=== PATIENT | female | born 1945 | race Caucasian/White ===

== ENCOUNTER 2017-04-26 13:40 | Emergency (ER) | payer OTHER, BC ==
[2017-04-26 14:13] VITALS: BP 160/94; PULSE 82; TEMP 98.4; BMI 27.4
--- NOTE | 2017-04-26 14:37 | PDOC ---
History of Present Illness - General History Source: Patient Exam Limitations: No Limitations - History of Present Illness Initial Comments: 04/26/17 15:00 The patient is a 71 year old female, with a significant past medical history of hyperthyroidism(w/ iodine treatment resulting in hypothyroidism), hyperlipidemia , GERD, diverticulosis, hiatal hernia, and H. Pylori, who presents to the emergency department s/p mechanical fall approximately 6 days ago. The patient reports she went outside for a walk around her house, but when she went to turn the corner she rolled her foot on a piece of wood the color of the sidewalk, which caused her to fall. The patient reports twisting her right ankle and landing on her wrist. She denies any head trauma or LOC. Patient reports she was able to bare weight s/p fall. She reports associated edema and ecchymosis at the right ankle. She reports tightness in her legs bilaterally, and tenderness at the knees. She reports scraping her left knee and cleaning it with peroxide. The patient denies any fever, chills, weakness, headache, or dizziness. She denies any chest pain, shortness of breath, diaphoresis, or palpitations. She denies any recent travel or sick contacts. Allergies: Terbinafine Past Surgical History: Cholecystectomy, Arthroscopy with meniscus repair of right knee(05/16) Social History: Non smoker. No ETOH or drug use. PCP: Dr. Warren <Schuyler Santana - Last Filed: 04/26/17 16:52> <Chapis Thompson - Last Filed: 04/30/17 07:48> - General Chief Complaint: Injury Stated Complaint: FELL. RIGHT WRIST, KNEE, ANKLE FOOT INJURY Time Seen by Provider: 04/26/17 14:26 Past History <Schuyler Santana - Last Filed: 04/26/17 16:52> - Past Medical History GI Disorders: Yes (COLON POLYPS,H.PYLORI,DIVERTICULOSIS,GERD,HIATAL HERNIA) Hypercholesterolemia: Yes Thyroid Disease: Yes (HYPERTHYROIDISM W/IODINE TREATMENT RESULTING IN HYPOTHYROIDISM) - Surgical History Cholecystectomy: Yes (1972) Orthopedic Surgery: Yes (ARTHROSCOPY W/MENISCUS REPAIR OF RT.KNEE 05/16) - Psycho/Social/Smoking Cessation Hx Anxiety: No Suicidal Ideation: No Smoking History: Never smoked Hx Alcohol Use: Yes (OCCASIONAL) Drug/Substance Use Hx: No Substance Use Type: None <Chapis Thompson - Last Filed: 04/30/17 07:48> - Past Medical History Allergies/Adverse Reactions: Allergies Allergy/AdvReac Type Severity Reaction Status Date / Time terbinafine Allergy Intermediate Rash Verified 02/26/16 10:43 Home Medications: Ambulatory Orders Atorvastatin Ca [Lipitor] 10 mg PO HS 02/26/16 Levothyroxine [Synthroid -] 75 mcg PO DAILY 02/26/16 Multivit-Min/Iron/Folic/Lutein [Centrum Silver Women Tablet] 1 tab PO DAILY Review of Systems - Review of Systems Comments:: 04/26/17 15:01 GENERAL/CONSTITUTIONAL: No fever or chills. No weakness. HEAD, EYES, EARS, NOSE AND THROAT: No change in vision. No ear pain or discharge. No sore throat. CARDIOVASCULAR: No chest pain or shortness of breath. RESPIRATORY: No cough, wheezing, or hemoptysis. GASTROINTESTINAL: No nausea, vomiting, diarrhea or constipation. GENITOURINARY: No dysuria, frequency, or change in urination. MUSCULOSKELETAL: Yes: +right ankle edema, +right ankle ecchymosis, +tightness in the legs bilaterally, +ecchymosis of the right knee, +scraping of the left knee. +tenderness at the knees. No neck or back pain. SKIN: No rash NEUROLOGIC: No headache, vertigo, loss of consciousness, or change in strength/ sensation. ENDOCRINE: No increased thirst. No abnormal weight change. HEMATOLOGIC/LYMPHATIC: No anemia, easy bleeding, or history of blood clots. ALLERGIC/IMMUNOLOGIC: No hives or skin allergy. <Schuyler Santana - Last Filed: 04/26/17 16:52> *Physical Exam - Vital Signs Last Vital Signs Temp Pulse Resp BP Pulse Ox 98.4 F 82 15 160/94 97 04/26/17 13:50 04/26/17 13:50 04/26/17 13:50 04/26/17 13:50 04/26/17 13:50 <Schuyler Santana - Last Filed: 04/26/17 16:52> - Vital Signs Last Vital Signs Temp Pulse Resp BP Pulse Ox 98.4 F 82 15 160/94 97 04/26/17 13:50 04/26/17 13:50 04/26/17 13:50 04/26/17 13:50 04/26/17 13:50 - Physical Exam Comments: GENERAL: Awake, alert, and fully oriented, in no acute distress HEAD: No signs of trauma EYES: PERRLA, EOMI, sclera anicteric, conjunctiva clear ENT: Auricles normal inspection, hearing grossly normal, nares patent, oropharynx clear without exudates. Moist mucosa NECK: Normal ROM, supple, no lymphadenopathy, JVD, or masses LUNGS: Breath sounds equal, clear to auscultation bilaterally. No wheezes, and no crackles HEART: Regular rate and rhythm, normal S1 and S2, no murmurs, rubs or gallops ABDOMEN: Soft, nontender, normoactive bowel sounds. No guarding, no rebound. No masses EXTREMITIES: R knee with small ecchymosis to the medial surface, just distal to the joint. +Significant ecchymosis and edema to the R lateral ankle with tenderness to the distal tip of the fibula. L inferior knee with healing abrasion. No surrounding erythema. Remainder of extremities with normal range of motion, no edema. No clubbing or cyanosis. No cords, erythema, or tenderness NEUROLOGICAL: Cranial nerves II through XII grossly intact. Normal speech, normal gait. Motor and sensation intact. SKIN: Warm, Dry, normal turgor, no rashes or lesions noted. <Chapis Thompson - Last Filed: 04/30/17 07:48> Procedures - Splinting Splint Location: Right: Ankle Pre-Proc Neuro Vasc Exam: normal Pre-Made Type: aircast Post-Proc Neuro Vasc Exam: normal Complications: No <Chapis Thompson - Last Filed: 04/30/17 07:48> ED Treatment Course - RADIOLOGY Radiograph Interpretation: 04/26/17 16:53 EXAM: Right Knee X-Ray INTERPRETED BY: Dr. Valentino REVIEWED BY: Dr. Thompson IMPRESSION: Osteopenia without gross evidence of a fracture or dislocation. Correlate clinically to determine further evaluation EXAM: Right Foot/Ankle X-Ray INTERPRETED BY: Dr. Valentino REVIEWED BY: Dr. Thompson IMPRESSION: Mild soft tissue swelling over the lateral malleolus. Small plantar calcaneal spur. Findings suggestive of osteopenia without gross evidence of an acute fracture or dislocation <Schuyler Santana - Last Filed: 04/26/17 16:52> *DC/Admit/Observation/Transfer - Attestations Scribe Attestion: 04/26/17 15:02 Documentation prepared by Schuyler Santana, acting as medical assistant cardiology for Chapis Thompson MD. <Schuyler Santana - Last Filed: 04/26/17 16:52> - Discharge Dispostion Admit: No <Chapis Thompson - Last Filed: 04/30/17 07:48> Diagnosis at time of Disposition: Ankle sprain Qualifiers: Encounter type: initial encounter Involved ligament of ankle: unspecified ligament Laterality: right Qualified Code(s): S93.401A - Sprain of unspecified ligament of right ankle, initial encounter - Discharge Dispostion Disposition: HOME Condition at time of disposition: Good - Referrals Referrals: Po Warren [Primary Care Provider] - - Patient Instructions Printed Discharge Instructions: DI for Ankle Sprain
== END 2017-04-26 17:10 | disposition home or self-care (01) ==
LOC: FER 13:40
DX: S93.401A Sprain of unspecified ligament of right ankle, initial encounter (principal); W18.39XA Other fall on same level, initial encounter; Y93.89 Activity, other specified; Y92.9 Unspecified place or not applicable; E07.9 Disorder of thyroid, unspecified
CPT/HCPCS: 73562-TC-RT; 73610-TC-RT; 73630-TC-RT; 99281-25

== ENCOUNTER 2018-11-18 09:57 | Day surgery (SDC) | payer OTHER, BC ==
[2018-11-17 13:12] VITALS: BMI 27.4
[2018-11-18 12:50] VITALS: TEMP 97.9
[2018-11-18 13:49] VITALS: BP 140/66; PULSE 77
--- NOTE | 2018-11-21 18:27 | PATH ---
Surgical Pathology Report Patient Name: LYNSEY FITCH [facility]. Rec. #: [id number] /Age/Gender: 1945 (Age: 73) / F Account: [id number] Location: U-ENDOSCOPY Taken: 11/18/2018 Received: 11/18/2018 Reported: 11/21/2018 Physicians: João Merchant M.D. Specimen(s) Received A: BX DUODENUM B: BX BODY AND ANTRUM C: BX DISTAL ESOPHAGUS D: BX MID ESOPHAGUS E: POLYP DISTAL TRASNVERSE COLON F: POLYP RIGHT COLON Clinical History Polyps surveillance, iron deficiency anemia, family history of colon cancer Postoperative diagnosis: Hiatal hernia, GERD, gastric and antral ulcers, colon polyp, diverticulosis Final Diagnosis A. DUODENUM, SECOND PORTION AND BULB, BIOPSY: DUODENAL MUCOSA WITH MILD TO MODERATE CHRONIC DUODENITIS AND WENDY'S GLAND HYPERPLASIA. B. STOMACH, ANTRUM AND BODY, BIOPSY: GASTRIC ANTRAL AND BODY MUCOSA WITH MILD CHRONIC GASTRITIS. IMMUNOHISTOCHEMICAL STAIN FOR H. PYLORI IS NEGATIVE. C. DISTAL ESOPHAGUS, BIOPSY: SQUAMOUS MUCOSA WITH MILD BASAL CELL HYPERPLASIA CONSISTENT WITH MILD REFLUX ESOPHAGITIS. D. MID ESOPHAGUS, BIOPSY: SQUAMOUS MUCOSA WITH MILD BASAL CELL HYPERPLASIA CONSISTENT WITH MILD REFLUX ESOPHAGITIS. E. DISTAL TRANSVERSE COLON, POLYP, BIOPSY: TUBULAR ADENOMA. F. COLON, RIGHT, POLYP, BIOPSY: TUBULAR ADENOMA. Electronically Signed Amelia Duff M.D. Gross Description A. Received in formalin, labeled "biopsy second portion of duodenum and bulb" are 3 huggins, irregular portions of soft tissue averaging 0.3 cm. in greatest dimension. The specimens are submitted in toto in one cassette. B. Received in formalin, labeled "biopsy antrum and body" are 4 huggins, irregular portions of soft tissue ranging from 0.2-0.3 cm. in greatest dimension. The specimens are submitted in toto in one cassette. C. Received in formalin, labeled "biopsy distal esophagus" are 2 huggins, irregular portions of soft tissue measuring 0.3 and 0.4 cm. in greatest dimension. The specimens are submitted in toto in one cassette. D. Received in formalin, labeled "biopsy midesophagus" are 3 huggins, irregular portions of soft tissue ranging from 0.1-0.3 cm. in greatest dimension. The specimens are submitted in toto in one cassette. E. Received in formalin, labeled "polyp distal transverse colon" are 2 huggins, irregular portions of soft tissue measuring 0.2 and 0.3 cm. in greatest dimension. The specimens are submitted in toto in one cassette. F. Received in formalin, labeled "polyp right colon" are 2 huggins, irregular portions of soft tissue measuring 0.1 and 0.3 cm. in greatest dimension. The specimens are submitted in toto in one cassette. 11/18/2018 [facility]11/18/2018
== END 2018-11-18 13:49 | disposition home or self-care (01) ==
LOC: JASU-ENDO 09:57
PROVIDERS: ATTEND Internal Medicine Gastroenterology
PROC: 0DBL8ZX Excision of Transverse Colon, Via Natural or Artificial Opening Endoscopic, Diagnostic (ICD-10-PCS; 2018-11-18)
PROC: 0DB38ZX Excision of Lower Esophagus, Via Natural or Artificial Opening Endoscopic, Diagnostic (ICD-10-PCS; 2018-11-18)
PROC: 0DB68ZX Excision of Stomach, Via Natural or Artificial Opening Endoscopic, Diagnostic (ICD-10-PCS; 2018-11-18)
PROC: 0DB28ZX Excision of Middle Esophagus, Via Natural or Artificial Opening Endoscopic, Diagnostic (ICD-10-PCS; 2018-11-18)
PROC: 0DBK8ZX Excision of Ascending Colon, Via Natural or Artificial Opening Endoscopic, Diagnostic (ICD-10-PCS; principal; 2018-11-18 10:45)
DX: Z12.11 Encounter for screening for malignant neoplasm of colon (principal); Z86.010 Personal history of colon polyps; Z80.0 Family history of malignant neoplasm of digestive organs; D50.9 Iron deficiency anemia, unspecified; D12.2 Benign neoplasm of ascending colon; D12.3 Benign neoplasm of transverse colon; K57.30 Diverticulosis of large intestine without perforation or abscess without bleeding; K64.8 Other hemorrhoids; K21.9 Gastro-esophageal reflux disease without esophagitis; K44.9 Diaphragmatic hernia without obstruction or gangrene; K25.9 Gastric ulcer, unspecified as acute or chronic, without hemorrhage or perforation; K22.4 Dyskinesia of esophagus
CPT/HCPCS: 88305-TC; 88342-TC

== ENCOUNTER 2020-09-17 12:00 | Emergency (ER) | payer OTHER, BC ==
[2020-09-17 12:06] VITALS: TEMP 99; BMI 25.4
[2020-09-17] MEDS ORDERED: LIDOCAINE 5% TOPICAL PATCH TP ONE (12:23)
[2020-09-17] MEDS ORDERED: ACETAMINOPHEN 325 MG TABLET (FP) PO ONE (12:23)
[2020-09-17] MEDS ORDERED: ACETAMINOPHEN 500 MG TABLET (FP) ONE (12:39)
[2020-09-17] MEDS ORDERED: LIDOCAINE 5% TOPICAL PATCH ONE (12:40)
[2020-09-17 14:34] VITALS: BP 151/85; PULSE 68
== END 2020-09-17 14:35 | disposition home or self-care (01) ==
LOC: FER 12:00
DX: M54.6 Pain in thoracic spine (principal)
CPT/HCPCS: 93005; 99283-25

== ENCOUNTER 2021-05-02 04:59 | Day surgery (SDC) | payer OTHER, BC ==
[2021-05-01 19:03] VITALS: BMI 25.6
[2021-05-02 12:17] VITALS: TEMP 97.5
[2021-05-02 13:34] VITALS: BP 144/87; PULSE 70
== END 2021-05-02 13:25 | disposition home or self-care (01) ==
LOC: JASU-ENDO 04:59
PROVIDERS: ATTEND Internal Medicine Gastroenterology
PROC: 0DBL8ZX Excision of Transverse Colon, Via Natural or Artificial Opening Endoscopic, Diagnostic (ICD-10-PCS; 2021-05-02)
PROC: 0DB98ZX Excision of Duodenum, Via Natural or Artificial Opening Endoscopic, Diagnostic (ICD-10-PCS; 2021-05-02)
PROC: 0DB68ZX Excision of Stomach, Via Natural or Artificial Opening Endoscopic, Diagnostic (ICD-10-PCS; 2021-05-02)
PROC: 0DBK8ZX Excision of Ascending Colon, Via Natural or Artificial Opening Endoscopic, Diagnostic (ICD-10-PCS; principal; 2021-05-02 12:00)
DX: Z12.11 Encounter for screening for malignant neoplasm of colon (principal); K92.1 Melena; D50.9 Iron deficiency anemia, unspecified; K64.8 Other hemorrhoids; K57.30 Diverticulosis of large intestine without perforation or abscess without bleeding; D12.2 Benign neoplasm of ascending colon; D12.3 Benign neoplasm of transverse colon; K26.9 Duodenal ulcer, unspecified as acute or chronic, without hemorrhage or perforation; K44.9 Diaphragmatic hernia without obstruction or gangrene; Z86.010 Personal history of colon polyps; Z80.0 Family history of malignant neoplasm of digestive organs
CPT/HCPCS: 88305-TC; 88342-TC

== ENCOUNTER 2023-10-18 13:25 | Emergency (ER) | payer OTHER, BC ==
[2023-10-18 13:39] VITALS: RESP 16; BMI 25.7
[2023-10-18] MEDS ORDERED: PANTOPRAZOLE SODIUM 40 MG VIAL IVPUSH ONE (13:54)
[2023-10-18] MEDS ORDERED: PANTOPRAZOLE SODIUM 40 MG VIAL ONE (14:28)
[2023-10-18] MEDS ORDERED: ACETAMINOPHEN 1000 MG/100 ML BAG IVPB ONE (14:38)
[2023-10-18 14:43] LABS: HEMATOCRIT 42.8 % (32.4-45.2); HEMOGLOBIN 14.5 G/dL (10.7-15.3); INR 0.91 (0.83-1.09); MCH 34.2 pg (25.7-33.7); MCHC 33.9 g/dl (32.0-36.0); MEAN PLT VOLUME 8.4 fl (7.5-11.1); PLATELET COUNT 219.5 10^3/uL (134-434); PROTHROMBIN TIME (PATIENT) 10.6 SEC (9.7-13.0); RBC 4.24 10^6/uL (3.60-5.2); RDW 14.3 % (11.6-15.6); WHITE BLOOD COUNT 5.2 10^3/uL (4.0-10.8)
[2023-10-18] MEDS ORDERED: ACETAMINOPHEN INJECTION 100 ML IVPB ONE (14:45)
[2023-10-18 14:46] LABS: ACTIVATED PTT 31.1 SECONDS (25.2-36.5)
[2023-10-18 15:08] LABS: ALBUMIN 4.4 g/dl (3.4-5.0); BILIRUBIN,TOTAL 0.6 mg/dl (0.2-1); CREATININE 0.8 mg/dl (0.6-1.3); MAGNESIUM 1.8 mg/dL (1.8-2.4); POTASSIUM 3.9 mmol/L (3.5-5.1); TOT PROT 7.3 g/dl (6.4-8.2)
[2023-10-18 16:12] LABS: PLATELET ESTIMATE ADEQUATE
[2023-10-18 17:56] LABS: HEMATOCRIT 42.5 % (32.4-45.2); HEMOGLOBIN 14.1 G/dL (10.7-15.3); MCH 33.1 pg (25.7-33.7); MCHC 33.1 g/dl (32.0-36.0); MEAN CELL VOLUME 99.7 fl (80-96); MEAN PLT VOLUME 8.1 fl (7.5-11.1); PLATELET COUNT 205.1 10^3/uL (134-434); RBC 4.26 10^6/uL (3.60-5.2); RDW 13.9 % (11.6-15.6); WHITE BLOOD COUNT 5.3 10^3/uL (4.0-10.8)
[2023-10-18 17:57] VITALS: TEMP 98.5
[2023-10-18 18:49] VITALS: BP 154/90; PULSE 88
== END 2023-10-18 19:31 | disposition home or self-care (01) ==
LOC: FER 13:25
PROC: 3E033NZ Introduction of Analgesics, Hypnotics, Sedatives into Peripheral Vein, Percutaneous Approach (ICD-10-PCS; principal; 2023-10-18)
PROC: 3E033GC Introduction of Other Therapeutic Substance into Peripheral Vein, Percutaneous Approach (ICD-10-PCS; 2023-10-18)
DX: R42 Dizziness and giddiness (principal); R19.5 Other fecal abnormalities; R10.13 Epigastric pain; R53.83 Other fatigue; R51.9 Headache, unspecified
CPT/HCPCS: 36415; 71045-TC-FY; 80053; 81003; 82272; 83605; 83690; 83735; 84443; 84484; 85027; 85610; 85730; 87086; 93005; 99285-25